=== PATIENT | female | born 1960 | race Caucasian/White ===

== ENCOUNTER → 2019-04-15 | Outpatient (CLI) | payer OTHER | END | disposition home or self-care (01) | LOC: RAD 16:31 | PROVIDERS: ATTEND Physician Assistant Medical | DX: R10.2 Pelvic and perineal pain (principal) | CPT/HCPCS: 74176 ==

== ENCOUNTER 2019-04-18 16:27 | Emergency (ER) | payer OTHER ==
[~2019-04-18] VITALS: Ht 175.3 cm; Wt 80.0 kg
[2019-04-18 16:42] VITALS: BP 156/106
--- NOTE | 2019-04-18 17:46 | NUR ---
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
--- NOTE | 2019-04-18 18:06 | NUR ---
BREAK RN. GEE IN ROOM TO MANSI.
[2019-04-18 18:31] LABS: MICROSCOPIC NOT IND
--- NOTE | 2019-04-18 18:37 | NUR ---
ALL RESULTS ARE BACK AT THIS TIME. CHART UP FOR RECHECK.
== END 2019-04-18 19:12 | disposition home or self-care (01) ==
LOC: ED 18:40
DX: M54.5 Low back pain (principal); T14.8XXA Other injury of unspecified body region, initial encounter; R10.31 Right lower quadrant pain; Z90.710 Acquired absence of both cervix and uterus; X58.XXXA Exposure to other specified factors, initial encounter; Y93.89 Activity, other specified; Y92.89 Other specified places as the place of occurrence of the external cause; Y99.8 Other external cause status
CPT/HCPCS: 81003; 99283